=== PATIENT | male | born 1960 | race Caucasian/White ===

== ENCOUNTER 2017-04-05 14:09 | Emergency (ER) | payer OTHER, MEDICAID ==
[~2017-04-05] VITALS: Ht 167.6 cm; Wt 90.0 kg
[~2017-04-05 14:09] MED LIST: CIPRO 500MG TA500 MG PO; IBUPROFEN200 M1 PO; LISINOPRIL10 MG PO; PERCOCET 325 MG1 TA2 PO
[2017-04-05] MEDS ORDERED: MAGNESIUM SULF (14:20)
[2017-04-05] MEDS ORDERED: NORCO 325 MG-51 TA1 PO (14:59)
[2017-04-05 15:02] VITALS: BP 139/98
== END 2017-04-05 15:06 | disposition home or self-care (01) ==
LOC: ED 14:09
DX: H10.212 Acute toxic conjunctivitis, left eye (principal); S05.02XA Injury of conjunctiva and corneal abrasion without foreign body, left eye, initial encounter; Z77.098 Contact with and (suspected) exposure to other hazardous, chiefly nonmedicinal, chemicals
CPT/HCPCS: 90715

== ENCOUNTER → 2019-02-14 | Outpatient (CLI) | payer OTHER, MEDICAID ==
[~2019-02-14] MED LIST changes: +MAGNESIUM SULF; +NORCO 325 MG-51 TA1 PO
[2019-02-14 14:04] LABS: EOS # 0.2 (0.04-0.40); EOS % 3.1 % (0.0-4.0); HEMATOCRIT 48.5 % (42.0-52.0); HEMOGLOBIN 15.7 g/dL (13.5-18.0); LYMPH# 1.9 (1.50-4.00); MEAN CELL VOLUME 91 fl (78-100); MEAN CORPUSCULAR HEMOGLOBIN 30 pg (27-31); MEAN CORPUSCULAR HGB CONC 32 g/dL (33-37); MEAN PLATELET VOLUME 9.6 fl (7.4-10.4); MONO # 0.8 (0.20-0.80); NEU # 3.9 (1.40-6.50); PLATELET COUNT 357 K/mm3 (130-400); RED BLOOD COUNT 5.31 M/mm3 (4.20-5.60); RED CELL DISTRIBUTION WIDTH 13.7 % (11.5-14.5); WHITE BLOOD COUNT 6.8 K/mm3 (4.8-10.8)
[2019-02-14 14:23] LABS: CALCIUM 9.3 mg/dL (8.4-10.2); POTASSIUM 4.9 mmol/L (3.6-5.0)
== END ==
LOC: LAB 10:56
PROVIDERS: Physician Assistant
DX: J02.9 Acute pharyngitis, unspecified (principal); R59.1 Generalized enlarged lymph nodes

== ENCOUNTER → 2019-02-15 | Outpatient (CLI) | payer MEDICARE, MEDICAID | LOC: LAB 11:57 | DX: J02.9 Acute pharyngitis, unspecified (principal); R59.1 Generalized enlarged lymph nodes ==

== ENCOUNTER → 2019-05-20 | Outpatient (CLI) | payer MEDICARE, MEDICAID | LOC: LAB 18:54 | DX: K13.79 Other lesions of oral mucosa (principal) ==

== ENCOUNTER 2019-06-01 17:19 | Emergency (ER) | payer MEDICARE, MEDICAID ==
[~2019-06-01] VITALS: Ht 165.1 cm; Wt 63.4 kg
[2019-06-01] MEDS ORDERED: LOSARTAN POTASS50 M1 PO (17:32)
[2019-06-01] MEDS ORDERED: LIDOCAINE HC20 MG/M1 PO (17:33)
[2019-06-01 19:01] LABS: EOS # 0.1 (0.04-0.40); EOS % 0.8 % (0.0-4.0); HEMATOCRIT 47.9 % (42.0-52.0); HEMOGLOBIN 16.1 g/dL (13.5-18.0); LYMPH# 2.2 (1.50-4.00); MEAN CELL VOLUME 89 fl (78-100); MEAN CORPUSCULAR HEMOGLOBIN 30 pg (27-31); MEAN CORPUSCULAR HGB CONC 34 g/dL (33-37); MEAN PLATELET VOLUME 9.1 fl (7.4-10.4); MONO # 1.2 (0.20-0.80); PLATELET COUNT 351 K/mm3 (130-400); RED BLOOD COUNT 5.37 M/mm3 (4.20-5.60); RED CELL DISTRIBUTION WIDTH 13.4 % (11.5-14.5); WHITE BLOOD COUNT 13.6 K/mm3 (4.8-10.8)
[2019-06-01 19:03] LABS: ALBUMIN 3.9 g/dL (3.5-5.0); POTASSIUM 4.8 mmol/L (3.5-5.1)
[2019-06-01 19:05] LABS: CALCIUM 9.5 mg/dL (8.3-10.5)
[2019-06-01 19:06] LABS: TOTAL PROTEIN 7.2 g/dL (6.4-8.3)
[2019-06-01 19:08] LABS: TOTAL BILIRUBIN 0.4 mg/dL (0.2-1.2)
[2019-06-01 20:09] LABS: URINE APPEARANCE CLOUDY; URINE BILIRUBIN NEGATIVE (NEGATIVE); URINE BLOOD NEGATIVE (NEGATIVE); URINE COLOR YELLOW; URINE GLUCOSE NEGATIVE (NEGATIVE); URINE KETONE 1+ (NEGATIVE); URINE LEUKOCYTE ESTERASE NEGATIVE (NEGATIVE); URINE MUCUS PRESENT (NOT PRESENT); URINE NITRATE NEGATIVE (NEGATIVE); URINE PROTEIN(semi-quant) NEGATIVE (NEGATIVE); URINE UROBILINOGEN NORMAL (NORMAL)
[2019-06-01] MEDS ORDERED: GOOD NEIGHBOR P20 M1 PO (22:36)
[2019-06-01 22:58] VITALS: BP 154/91
== END 2019-06-01 22:58 | disposition home or self-care (01) ==
LOC: ED 17:19
PROVIDERS: Family Medicine
DX: K26.9 Duodenal ulcer, unspecified as acute or chronic, without hemorrhage or perforation (principal); I10 Essential (primary) hypertension; F17.210 Nicotine dependence, cigarettes, uncomplicated; Z98.890 Other specified postprocedural states
CPT/HCPCS: C9113; Q9967

== ENCOUNTER 2020-10-23 09:02 | Emergency (ER) | payer MEDICARE, MEDICAID ==
[~2020-10-23] VITALS: Ht 165.1 cm; Wt 63.4 kg
[~2020-10-23 09:02] MED LIST changes: +GOOD NEIGHBOR P20 M1 PO; +LIDOCAINE HC20 MG/M1 PO; +LOSARTAN POTASS50 M1 PO
[2020-10-23 10:56] LABS: EOS # 0.1 (0.04-0.40); HEMATOCRIT 44.6 % (42.0-52.0); HEMOGLOBIN 14.9 g/dL (13.5-18.0); LYMPH# 1.7 (1.50-4.00); MEAN CELL VOLUME 90 fl (78-100); MEAN CORPUSCULAR HEMOGLOBIN 30 pg (27-31); MEAN CORPUSCULAR HGB CONC 33 g/dL (33-37); MEAN PLATELET VOLUME 9.1 fl (7.4-10.4); MONO # 0.7 (0.20-0.80); NEU # 5.2 (1.40-6.50); PLATELET COUNT 321 K/mm3 (130-400); RED BLOOD COUNT 4.98 M/mm3 (4.20-5.60); WHITE BLOOD COUNT 7.7 K/mm3 (4.8-10.8)
[2020-10-23 11:18] LABS: ALBUMIN 4.2 g/dL (3.5-5.0); POTASSIUM 4.6 mmol/L (3.5-5.1)
[2020-10-23 11:19] LABS: CALCIUM 8.7 mg/dL (8.3-10.5)
[2020-10-23 11:20] LABS: TOTAL PROTEIN 7.1 g/dL (6.4-8.3)
[2020-10-23 11:22] LABS: TOTAL BILIRUBIN 0.5 mg/dL (0.2-1.2)
[2020-10-23 13:06] LABS: URINE APPEARANCE CLEAR; URINE COLOR YELLOW; URINE WBC 0 /hpf (0-3)
[2020-10-23 13:07] LABS: URINE BILIRUBIN NEGATIVE (NEGATIVE); URINE BLOOD NEGATIVE (NEGATIVE); URINE GLUCOSE NEGATIVE (NEGATIVE); URINE KETONE NEGATIVE (NEGATIVE); URINE LEUKOCYTE ESTERASE NEGATIVE (NEGATIVE); URINE NITRATE NEGATIVE (NEGATIVE); URINE PROTEIN(semi-quant) TRACE mg/dL (NEGATIVE); URINE UROBILINOGEN NORMAL (NORMAL)
[2020-10-23] MEDS ORDERED: CYCLOBENZAPRINE10 M1 PO (15:43)
[2020-10-23] MEDS ORDERED: ULTRAM50 M1 PO (15:43)
[2020-10-23 15:48] VITALS: BP 151/56
[2020-10-23] MEDS ORDERED: PRINIVIL10 M1 PO (15:52)
== END 2020-10-23 15:58 | disposition home or self-care (01) ==
LOC: ED 09:02
PROVIDERS: Nurse Practitioner Family; Physician Assistant
DX: R10.9 Unspecified abdominal pain (principal); S22.080A Wedge compression fracture of T11-T12 vertebra, initial encounter for closed fracture; R05 Cough; R19.7 Diarrhea, unspecified; I10 Essential (primary) hypertension; F17.210 Nicotine dependence, cigarettes, uncomplicated; Z88.6 Allergy status to analgesic agent; W19.XXXA Unspecified fall, initial encounter
CPT/HCPCS: J1885; J7030

== ENCOUNTER → 2022-01-06 | Outpatient (CLI) | payer MEDICARE, MEDICAID ==
[~2022-01-06] MED LIST changes: +CYCLOBENZAPRINE10 M1 PO; +PRINIVIL10 M1 PO; +ULTRAM50 M1 PO
[2022-01-06 15:19] LABS: BASO # 0.03 K/mm3 (0.02-0.10); EOS # 0.18 K/mm3 (0.04-0.40); EOS % 2.5 % (0.0-4.0); HEMATOCRIT 43.6 % (42.0-52.0); HEMOGLOBIN 14.3 g/dL (13.5-18.0); LYMPH# 2.39 K/mm3 (1.50-4.00); MEAN CELL VOLUME 91 fl (78-100); MEAN CORPUSCULAR HEMOGLOBIN 30 pg (27-31); MEAN CORPUSCULAR HGB CONC 33 g/dL (33-37); MEAN PLATELET VOLUME 8.8 fl (7.4-10.4); MONO # 0.63 K/mm3 (0.20-0.80); NEU # 3.92 K/mm3 (1.40-6.50); PLATELET COUNT 315 K/mm3 (130-400); RED BLOOD COUNT 4.78 M/mm3 (4.20-5.60); RED CELL DISTRIBUTION WIDTH 12.9 % (11.5-14.5); WHITE BLOOD COUNT 7.2 K/mm3 (4.8-10.8)
[2022-01-06 15:31] LABS: ALBUMIN 3.7 g/dL (3.5-5.0); POTASSIUM 4.5 mmol/L (3.5-5.1)
[2022-01-06 15:32] LABS: CALCIUM 8.7 mg/dL (8.3-10.5)
[2022-01-06 15:33] LABS: TOTAL PROTEIN 6.4 g/dL (6.4-8.3)
[2022-01-06 15:35] LABS: TOTAL BILIRUBIN 0.3 mg/dL (0.2-1.2)
[2022-01-06 16:31] LABS: ERYTHROCYTE SEDIMENTATION RATE 10 mm/hr (0-20)
== END ==
LOC: LAB 14:57
PROVIDERS: Internal Medicine
DX: K92.1 Melena (principal)